=== PATIENT | female | born 1970 | race Caucasian/White ===

== ENCOUNTER → 2016-09-30 | Emergency (ER) | payer OTHER ==
[~2016-09-30] MED LIST: PANTOPRAZOLE SODIUM 40 MG VIAL ONE; PANTOPRAZOLE SODIUM 40 MG in SODIUM CHLORIDE 100 ML IVPB ONE
[2016-09-30 18:41] VITALS: TEMP 97.9; BMI 28.3
--- NOTE | 2016-09-30 20:28 | PDOC ---
History of Present Illness - General History Source: Patient Exam Limitations: No Limitations - History of Present Illness Initial Comments: 09/30/16 20:41 The patient is a 46 year old female with no significant past medical history who presents to the ED for 5 days of chest pain. Patient reports she developed intermittent back pain 6 months ago and 5 days ago she developed chest pain. She describes her chest pain as a burning and pinching sensation that is bandlike across her chest and back. Patient took ibuprofen with minimal relief. She also has complaints of chills, SOB, nausea, and constipation. Denies any paresthesias or urinary/bladder incontinence. The patient denies fever, cough, diaphoresis, abdominal pain, vomiting, and diarrhea. Allergies: NKDA Social History: No alcohol, tobacco, or drug use reported. Past Surgical History: None reported PCP: Dr. Vanita Jimenez <Jacy Wilks - Last Filed: 09/30/16 21:26> - General History Source: Patient <Henry Nuñez - Last Filed: 09/30/16 21:58> - General Chief Complaint: Chest Pain Stated Complaint: CHEST PRESSURE/PAIN/NAUSEA/LIGHTHEADED Time Seen by Provider: 09/30/16 20:28 Past History <Jacy Wilks - Last Filed: 09/30/16 21:26> - Past Medical History Other medical history: denies - Psycho/Social/Smoking Cessation Hx Suicidal Ideation: No Smoking History: Never smoked Information on smoking cessation initiated: No Hx Alcohol Use: No Drug/Substance Use Hx: No Substance Use Type: None <Henry Nuñez - Last Filed: 09/30/16 21:58> - Past Medical History Allergies/Adverse Reactions: Allergies Allergy/AdvReac Type Severity Reaction Status Date / Time No Known Allergies Allergy Verified 09/30/16 18:38 Home Medications: Ambulatory Orders NK [No Known Home Medication] 09/30/16 Review of Systems - Review of Systems Able to Perform ROS?: Yes Comments:: 09/30/16 20:42 CONSTITUTIONAL: +chills Absent: fever, no fatigue EYES: Absent: visual changes ENT: Absent: ear pain, no sore throat CARDIOVASCULAR: +chest pain Absent: no palpitations RESPIRATORY: +SOB Absent: cough GI: +nausea, constipation Absent: abdominal pain, no vomiting, no diarrhea GENITOURINARY: Absent: dysuria, no frequency, no hematuria MUSCULOSKELETAL: +back pain Absent: no arthralgia, no myalgia SKIN: Absent: rash NEURO: Absent: headache <Jacy Wilks - Last Filed: 09/30/16 21:26> *Physical Exam - Vital Signs Last Vital Signs Temp Pulse Resp BP Pulse Ox 97.9 F 66 18 136/79 100 09/30/16 18:36 09/30/16 18:36 09/30/16 18:36 09/30/16 18:36 09/30/16 18:36 - Physical Exam Comments: 09/30/16 20:43 GENERAL: Well-appearing, well-nourished. No apparent distress. HEENT: Normocephalic, atraumatic. PERRL, EOM intact. CARDIOVASCULAR: Normal S1, S2. Regular rate and rhythm. PULMONARY: Clear to auscultation bilaterally. ABDOMEN: Soft, non-distended, non-tender. EXTREMITIES: Normal ROM in all four extremities. No gross deformities. SKIN: Warm, dry. No rash NEUROLOGICAL: No focal neurological deficits. <Jacy Wilks - Last Filed: 09/30/16 21:26> - Vital Signs Last Vital Signs Temp Pulse Resp BP Pulse Ox 97.9 F 66 18 136/79 100 09/30/16 18:36 09/30/16 18:36 09/30/16 18:36 09/30/16 18:36 09/30/16 18:36 <Henry Nuñez - Last Filed: 09/30/16 21:58> Heart Score/ECG Review - ECG Impressions Comment:: 09/30/16 21:26 NSR @73bpm Low voltage QRS Borderline ECG <Jacy Wilks - Last Filed: 09/30/16 21:26> ED Treatment Course - LABORATORY CBC & Chemistry Diagram: 09/30/16 20:40 09/30/16 20:40 <EfeJacy - Last Filed: 09/30/16 21:26> - LABORATORY CBC & Chemistry Diagram: 09/30/16 20:40 09/30/16 20:40 <Henry Nuñez - Last Filed: 09/30/16 21:58> Medical Decision Making - Medical Decision Making 09/30/16 21:56 Dr. Nuñez: The scribe's documentation has been prepared under my direction and personally reviewed by me in its entirery. I confirm that the note above accurately reflects all work, treatment, procedures, and medical decision making performed by me. Pt feels better with treatment with here in the department. Pt to follow up with her pcp and given referral to GI and cardiology <Henry Nuñez - Last Filed: 09/30/16 21:58> *DC/Admit/Observation/Transfer - Attestations Scribe Attestion: 09/30/16 20:43 Documentation prepared by Jacy Wilks, acting as medical microbiologist for Henry Nuñez MD/DO. <Jacy Wilks - Last Filed: 09/30/16 21:26> - Discharge Dispostion Admit: No <Henry Nuñez - Last Filed: 09/30/16 21:58> Diagnosis at time of Disposition: Chest pain Qualifiers: Chest pain type: unspecified Qualified Code(s): R07.9 - Chest pain, unspecified GERD (gastroesophageal reflux disease) Qualifiers: Esophagitis presence: esophagitis presence not specified Qualified Code(s): K21.9 - Gastro-esophageal reflux disease without esophagitis - Discharge Dispostion Disposition: HOME Condition at time of disposition: Improved - Referrals Referrals: Vanita Jimenez MD [Primary Care Provider] - Alfonzo Mitchell MD [Staff Physician] - Halie Addison MD [Staff Physician] - - Patient Instructions Printed Discharge Instructions: DI for Chest Pain, GERD Diet, DI for Gastroesophageal Reflux Disease (GERD) Print Language: ZAMBIAN
[2016-09-30 21:01] LABS: BASOPHIL 1.4 % (0-2.0); EOSINOPHIL 3.1 % (0-4.5); MCH 23.3 pg (25.7-33.7); MCHC 31.1 g/dl (32.0-36.0); MEAN PLT VOLUME 10.6 fl (7.5-11.1); NEUTROPHILS 55.6 % (42.8-82.8); PLATELET COUNT 216 K/MM3 (134-434); RDW 17.1 % (11.6-15.6)
[2016-09-30 21:13] LABS: INR 1.05 (0.82-1.09); PROTHROMBIN TIME (PATIENT) 11.6 SEC (9.98-11.88)
[2016-09-30 21:23] LABS: ALBUMIN 3.6 g/dl (3.4-5.0); ALK PHOS 73 U/L (45-117); ANION GAP 7 (8-16); BILIRUBIN,TOTAL 0.2 mg/dL (0.2-1.0); CALCIUM 8.5 mg/dL (8.5-10.1); CO2 27 mmol/L (21-32); CREATININE 0.6 mg/dL (0.55-1.02); GLUCOSE,RANDOM 95 mg/dL (74-106); MAGNESIUM 2.1 mg/dL (1.8-2.4); SGOT/AST 17 U/L (15-37); SGPT/ALT 23 U/L (12-78); TOT PROT 7.2 g/dl (6.4-8.2)
[2016-09-30 21:34] LABS: TROPONIN I < 0.02 ng/ml (0.00-0.05)
[2016-09-30 22:29] VITALS: BP 124/78; PULSE 78
--- NOTE | 2016-10-01 17:12 | EKG ---
Test Reason : Blood Pressure : / mmHG Vent. Rate : 073 BPM Atrial Rate : 073 BPM P-R Int : 156 ms QRS Dur : 076 ms QT Int : 400 ms P-R-T Axes : 069 026 064 degrees QTc Int : 440 ms NORMAL SINUS RHYTHM LOW VOLTAGE QRS BORDERLINE ECG WHEN COMPARED WITH ECG OF 09-MAY-2010 12:13, NO SIGNIFICANT CHANGE WAS FOUND Confirmed by JAMSHID LITTLE MD ([id number]) on 10/01/2016 5:11:44 PM Referred By: Confirmed By:JAMSHID LITTLE MD
== END | disposition home or self-care (01) ==
LOC: JER 18:26
PROC: 3E033GC Introduction of Other Therapeutic Substance into Peripheral Vein, Percutaneous Approach (ICD-10-PCS; principal; 2016-09-30)
DX: K21.9 Gastro-esophageal reflux disease without esophagitis (principal); R07.89 Other chest pain
CPT/HCPCS: 36415; 71020-TC; 80053; 81003; 82550; 83690; 83735; 84484; 84703; 85025; 85379; 85610; 93005; 93010; 96365; 99285-25

== ENCOUNTER 2016-10-24 07:37 | Inpatient (IN) | payer OTHER ==
[2016-10-24] MEDS ORDERED: SODIUM CHLORIDE 1,000 ML IV STA ×2 (07:55→09:29)
[2016-10-24 08:03] VITALS: BMI 29.2
--- NOTE | 2016-10-24 08:34 | PDOC ---
History of Present Illness - General Chief Complaint: Weakness Stated Complaint: LOW BLOOD PRESSURE Time Seen by Provider: 10/24/16 07:53 History Source: Patient, EMS, Family - History of Present Illness Timing/Duration: other (this am) Severity: severe Associated Symptoms: reports: chest pain, weakness. denies: diaphoresis, fever/ chills, nausea/vomiting, shortness of breath, syncope Past History - Past Medical History Allergies/Adverse Reactions: Allergies Allergy/AdvReac Type Severity Reaction Status Date / Time No Known Allergies Allergy Verified 10/24/16 08:02 Home Medications: Ambulatory Orders Amoxicillin - [Amoxicillin 250mg Capsule -] 0 mg PO BID 10/24/16 Clarithromycin [Biaxin -] 0 mg PO BID 10/24/16 Omeprazole 0 mg PO BID 10/24/16 Thyroid Disease: No - Psycho/Social/Smoking Cessation Hx Anxiety: No Suicidal Ideation: No Smoking History: Never smoked Have you smoked in the past 12 months: No Information on smoking cessation initiated: No Hx Alcohol Use: No Drug/Substance Use Hx: No Substance Use Type: None Review of Systems - Review of Systems Constitutional: Yes: Malaise, Weakness. No: Chills, Fever Respiratory: No: Cough, Shortness of Breath Cardiac (ROS): Yes: Chest Pain. No: Palpitations ABD/GI: No: Blood Streaked Bowels, Diarrhea, Nausea, Vomiting, Abdominal cramping, Tarry Stools Musculoskeletal: Yes: Back Pain *Physical Exam - Vital Signs Last Vital Signs Temp Pulse Resp BP Pulse Ox 97.3 F L 55 L 18 88/48 100 10/24/16 07:40 10/24/16 07:40 10/24/16 07:40 10/24/16 07:40 10/24/16 07:40 - Physical Exam General Appearance: Yes: Appropriately Dressed, Other (appears lethargic and pale w/ weak voice) Neck: positive: Supple Respiratory/Chest: positive: Lungs Clear, Normal Breath Sounds. negative: Respiratory Distress Cardiovascular: positive: Regular Rate, S1, S2 Gastrointestinal/Abdominal: positive: Normal Bowel Sounds, Soft. negative: Tender, Distended, Guarding, Rebound Rectal Exam: positive: other (soft brown stool). negative: melena Musculoskeletal: negative: CVA Tenderness Extremity: positive: Normal Inspection Integumentary: positive: Dry, Warm Neurologic: positive: Fully Oriented ED Treatment Course - LABORATORY CBC & Chemistry Diagram: 10/24/16 08:21 10/24/16 09:00 - RADIOLOGY Radiology Studies Ordered: Category Date Time Status CHEST X-RAY PORTABLE* [RAD] Stat Radiology 10/24/16 07:55 Ordered Medical Decision Making - Medical Decision Making 10/24/16 08:20 46 yo F, h/o GERD, anemia, currently on clarithromycin, amoxicillin and omeprazole after presenting to [facility] 2 days ago with chest and back pain, no recent scope, brought in by EMS after daughter called to report that patient was lethargic and not able to speak this a.m. As per EMS at the scene, patient appeared lethargic and hypotensive to 70s over 40s that minimally improved with 700 mL of IV fluids, HR mildly cristal. currently in ED and states last time he saw patient was last night and patient was complaining of some chest and back pain but appeared well otherwise. Patient currently lethargic in ED and hypotensive but able to give some history. Complains of feeling very weak at this time. Denies any change in bowel movements, melena, bright red blood per rectum, nausea, vomiting, fever, chills or dysuria. No history of GI bleed See exam Lethargy w/ ongoing SS chest/back pain Currently on triple therapy (amoxicillin/clarithro/omeprazole) for Hpylori in stool 4 days ago in PMD's office per pt S/p ED visit to [facility] 2 days ago for chest/back pain and started on nexium but not yet taken H/o "hereditary anemia", no h/o transfusion Denies GIB currently and no h/o same Hypotensive to 80s/50s in ED, otherwise stable +minimal ttp to substernal area, abd benign Soft brown stool, guaiac pending Lethargy 2/2 ?GIB/worsening anemia vs infxn/sepsis, though not febrile, vs cardiac -IVF -EKG/trops -Labs including T&S in case of GIB/need for transfusion -contact [facility] for records -PMD and admit 10/24/16 08:41 10/24/16 08:[address] [facility] and spoke to the physician in ED who reported that patient was seen in ED 2 days ago for burning chest and back pain and had unremarkable labs, including negative troponin, dimer and a hemoglobin of 9.6. Patient was discharged from the ED with Nexium. 2 30,86 trop dimer neg oags nl, bnexium 10/24/16 08:34 10/24/16 09:29 Labs w/ worsening anemia to 8.2, was 9.6, 2 days ago as documented above and 10 , 09/30/16 at [facility], rest pr labs unremarkable. BP better at 114/59 and pt reports feeling better. Will contact pmd and admit at this time 10/24/16 10:[address] Benton Celeste, patient's PMD, who recommends admitting to hospitalist. Dr. Perez currently at bedside and requesting CT abdomen. Patient currently admitted to hospitalist *DC/Admit/Observation/Transfer Diagnosis at time of Disposition: Lethargy, H. pylori infection Hypotension Qualifiers: Hypotension type: unspecified hypotension type Qualified Code(s): I95.9 - Hypotension, unspecified - Discharge Dispostion Condition at time of disposition: Fair Admit: Yes - Referrals Referrals: Vanita Jimenez MD [Primary Care Provider] -
[2016-10-24 08:36] LABS: EOSINOPHIL 1.9 % (0-4.5); MCH 23.9 pg (25.7-33.7); MCHC 31.5 g/dl (32.0-36.0); MEAN CELL VOLUME 75.9 fl (80-96); MEAN PLT VOLUME 10.1 fl (7.5-11.1); NEUTROPHILS 62.4 % (42.8-82.8); PLATELET COUNT 156 K/MM3 (134-434); RDW 17.8 % (11.6-15.6); WHITE BLOOD COUNT 7.5 K/mm3 (4.0-10.0)
[2016-10-24 08:37] LABS: URINE APPEARANCE CLEAR; URINE BILIRUBIN NEGATIVE (NEGATIVE); URINE COLOR STRAW; URINE GLUCOSE (UA) NEGATIVE (NEGATIVE); URINE KETONE NEGATIVE (NEGATIVE); URINE LEUK ESTERASE NEGATIVE (NEGATIVE); URINE NITRITE NEGATIVE (NEGATIVE); URINE PROTEIN NEGATIVE (NEGATIVE); URINE UROBILINOGEN NEGATIVE E.U./dl (0.2-1.0)
[2016-10-24 08:38] LABS: URINE BLOOD 1+ (NEGATIVE)
[2016-10-24 08:43] LABS: GRANULAR CASTS 3 /lpf; URINE MUCUS RARE; URINE RBC 2 /hpf (0-3); URINE WBC <1 /hpf (3-5)
[2016-10-24 08:50] LABS: INR 1.11 (0.82-1.09); PROTHROMBIN TIME (PATIENT) 12.2 SEC (9.98-11.88)
[2016-10-24 09:05] LABS: TROPONIN I < 0.02 ng/ml (0.00-0.05)
[2016-10-24 09:18] LABS: ALK PHOS 56 U/L (45-117); ANION GAP 8 (8-16); BILIRUBIN,TOTAL 0.3 mg/dL (0.2-1.0); CALCIUM 7.7 mg/dL (8.5-10.1); CO2 24 mmol/L (21-32); COCKROFT - GAULT 157.7005; CREATININE 0.5 mg/dL (0.55-1.02); GLUCOSE,RANDOM 87 mg/dL (74-106); SGOT/AST 17 U/L (15-37); SGPT/ALT 17 U/L (12-78); TOT PROT 6.1 g/dl (6.4-8.2)
--- NOTE | 2016-10-24 09:26 | PDOC ---
*Physical Exam - Vital Signs Last Vital Signs Temp Pulse Resp BP Pulse Ox 97.3 F L 64 14 109/65 100 10/24/16 07:50 10/24/16 08:54 10/24/16 08:54 10/24/16 08:54 10/24/16 08:54 Heart Score/ECG Review #1 ECG reviewed & interpreted by me at: 09:25 10/24/16 09:25 Twelve-lead EKG was performed and reviewed by me. There is normal sinus rhythm with a slightly bradycardiac rate of 59 bpm. The axis is normal. The intervals are normal - pr: 164ms, QRS:76ms, QTc:467ms. There are no ST or T wave abnormalities. ED Treatment Course - LABORATORY CBC & Chemistry Diagram: 10/25/16 06:45 10/25/16 06:45 - ADDITIONAL ORDERS Additional order review: Laboratory Results 10/24/16 10/24/16 10/24/16 09:00 08:55 08:23 INR Sodium 143 Potassium 3.7 Chloride 111 H Carbon Dioxide 24 Anion Gap 8 BUN 10 D Creatinine 0.5 L Creat Clearance w eGFR > 60 Random Glucose 87 Calcium 7.7 L Total Bilirubin 0.3 D AST 17 ALT 17 D Alkaline Phosphatase 56 D Creatine Kinase Troponin I Total Protein 6.1 L Albumin 3.0 L Lipase Cancelled Serum , Qual Urine Color Urine Appearance Urine pH Urine Protein Urine Glucose (UA) Urine Ketones Urine Blood Urine Nitrite Urine Bilirubin Urine Urobilinogen Ur Leukocyte Esterase Urine RBC Urine WBC Ur Epithelial Cells Granular Casts Urine Mucus Stool Occult Blood Negative 10/24/16 10/24/16 10/24/16 08:21 08:21 08:21 INR 1.11 Sodium Potassium Chloride Carbon Dioxide Anion Gap BUN Creatinine Creat Clearance w eGFR Random Glucose Calcium Total Bilirubin AST ALT Alkaline Phosphatase Creatine Kinase Troponin I Total Protein Albumin Lipase Cancelled Serum , Qual Urine Color Straw Urine Appearance Clear Urine pH 7.0 Urine Protein Negative Urine Glucose (UA) Negative Urine Ketones Negative Urine Blood 1+ H Urine Nitrite Negative Urine Bilirubin Negative Urine Urobilinogen Negative Ur Leukocyte Esterase Negative Urine RBC 2 Urine WBC <1 Ur Epithelial Cells Rare Granular Casts 3 Urine Mucus Rare Stool Occult Blood 10/24/16 10/24/16 08:21 07:56 INR Sodium Potassium Chloride Carbon Dioxide Anion Gap BUN Creatinine Creat Clearance w eGFR Random Glucose Calcium Total Bilirubin AST ALT Alkaline Phosphatase Creatine Kinase 123 Troponin I < 0.02 Total Protein Albumin Lipase 152 Serum , Qual Negative Urine Color Urine Appearance Urine pH Urine Protein Urine Glucose (UA) Urine Ketones Urine Blood Urine Nitrite Urine Bilirubin Urine Urobilinogen Ur Leukocyte Esterase Urine RBC Urine WBC Ur Epithelial Cells Granular Casts Urine Mucus Stool Occult Blood 10/24/16 08:21 RBC 3.45 L MCV 75.9 L MCHC 31.5 L RDW 17.8 H MPV 10.1 Neutrophils % 62.4 Lymphocytes % 29.1 Monocytes % 5.6 Eosinophils % 1.9 Basophils % 1.0 - Medications Given in the ED: ED Medications Discontinued Medications Generic Name Dose Route Start Last Admin Trade Name Freq PRN Reason Stop Dose Admin Sodium Chloride 1,000 mls @ 1,000 mls/hr 10/24/16 07:55 10/24/16 08:00 Normal Saline - IV 10/24/16 08:54 1,000 mls/hr ASDIR STA Administration Medical Decision Making - Medical Decision Making 10/24/16 09:26 Pt seen by Midlevel Provider under my direct supervision Ancillary studies reviewed I agree with plan as outlined by Midlevel Provider *DC/Admit/Observation/Transfer Diagnosis at time of Disposition: Lethargy, Hypotension, H. pylori infection - Discharge Dispostion Condition at time of disposition: Fair
[2016-10-24] MEDS ORDERED: METOCLOPRAMIDE HCL INJECTION 10 MG/2 ML VIAL IVPB ONE (10:26)
[2016-10-24] MEDS ORDERED: METOCLOPRAMIDE HCL INJECTION 10 MG/2 ML VIAL ONE (10:47)
[2016-10-24] MEDS ORDERED: ACETAMINOPHEN 325 MG TABLET (FP) PO PRN (11:33)
[2016-10-24] MEDS ORDERED: PANTOPRAZOLE SODIUM 40 MG in SODIUM CHLORIDE 100 ML IVPB SCH (11:45)
[2016-10-24] MEDS ORDERED: SODIUM CHLORIDE 1,000 ML IV SCH (11:45)
--- NOTE | 2016-10-24 12:01 | HP ---
CHIEF COMPLAINT: I feel weak and dizzy PCP: Benton Alonzo MD HISTORY OF PRESENT ILLNESS: 46 yo F with newly diagnosed GERD and h. pylori on triple therapy started 2 days ago presented to the ED with general weakness and dizziness since 3am. The symptom came on when she got up from bed this morning. She felt "drunk" and unsteady with blurry vision but denies fall or passing out. Her family member called ambulance at 6am because the symptom still persists. Per at bedside, she did not eat dinner last night due to epigastric discomfort. She describes the discomfort as epigastric burning pain, chronic and only comes on when sleeping or after meal, radiates to the back, 5-8/10 in severity, no alleviating or aggravating factors. Patient was seen in ED at [facility] 2 days ago for chest pain. Cardiac workup was negative and stool was positive for h. pylori therefore she's discharged home on triple therapy ( amoxicillin, clarithromycin and omeprazole). However, she did not take omeprazole since discharge. Patient also never had endoscopy or colonoscopy in the past and her LMP was 2 days ago with 2 pads on average. She denies nausea, vomiting, shortness of breath, fever, heavy menses, hematochezia, melena, hematuria, or syncope. ER course was notable for: (1) Hypotensive 70s over 40s (2) Received 2 L of NS (3) CBC shows microcytic anemia Recent Travel: Denies PAST MEDICAL HISTORY: Suspected chronic microcytic anemia PAST SURGICAL HISTORY: Social History: Smoking: Denies Alcohol: Denies Drugs: Denies Family History: Mother of diabetic complication Father alive Allergies No Known Allergies Allergy (Verified 10/24/16 08:02) HOME MEDICATIONS: Home Medications Medication Instructions Recorded Amoxicillin - [Amoxicillin 250mg 0 mg PO BID 10/24/16 Capsule -] Clarithromycin [Biaxin -] 0 mg PO BID 10/24/16 Omeprazole 0 mg PO BID 10/24/16 REVIEW OF SYSTEMS CONSTITUTIONAL: chills Absent: fever, diaphoresis, generalized weakness, malaise, loss of appetite, weight change HEENT: Absent: rhinorrhea, nasal congestion, throat pain, throat swelling, difficulty swallowing, mouth swelling, ear pain, eye pain, visual changes CARDIOVASCULAR: Absent: chest pain, syncope, palpitations, irregular heart rate, lightheadedness , peripheral edema RESPIRATORY: Absent: cough, shortness of breath, dyspnea with exertion, orthopnea, wheezing, stridor, hemoptysis GASTROINTESTINAL:abdominal pain Absent: abdominal distension, nausea, vomiting, diarrhea, constipation, melena, hematochezia GENITOURINARY: Absent: dysuria, frequency, urgency, hesitancy, hematuria, flank pain, genital pain MUSCULOSKELETAL: Absent: myalgia, arthralgia, joint swelling, back pain, neck pain SKIN: Absent: rash, itching, pallor HEMATOLOGIC/IMMUNOLOGIC: Absent: easy bleeding, easy bruising, lymphadenopathy, frequent infections ENDOCRINE: Absent: unexplained weight gain, unexplained weight loss, heat intolerance, cold intolerance NEUROLOGIC: Absent: headache, focal weakness or paresthesias, dizziness, unsteady gait, seizure, mental status changes, bladder or bowel incontinence PSYCHIATRIC: anxiety Absent: depression, suicidal or homicidal ideation, hallucinations. PHYSICAL EXAMINATION Last Vital Signs Temp Pulse Resp BP Pulse Ox 98 F 65 16 112/65 100 10/24/16 11:27 10/24/16 11:36 10/24/16 11:36 10/24/16 11:36 10/24/16 11:36 GENERAL: AAO x 3, appears appropriate to stated age, looks weak, speaks slowly in full sentences, but not in any acute distress HEAD: NC, AT EYES: PERRLA, sclera anicteric, conjunctiva clear. EARS, NOSE, THROAT: oropharynx clear without exudates. Moist mucous membranes. NECK: supple without lymphadenopathy, JVD, or masses. LUNGS: CTAB HEART: RRR, normal S1 and S2 without murmur, rub or gallop. ABDOMEN: Soft, nontender, not distended, normoactive bowel sounds, no guarding, no rebound, no masses. EXTREMITIES: No calf tenderness. No peripheral edema. CBCD WBC 7.5 K/mm3 (4.0-10.0) 10/24/16 08:21 RBC 3.45 M/mm3 (3.60-5.2) L 10/24/16 08:21 Hgb 8.2 GM/dL (10.7-15.3) L D 10/24/16 08:21 Hct 26.1 % (32.4-45.2) L D 10/24/16 08:21 MCV 75.9 fl (80-96) L 10/24/16 08:21 MCHC 31.5 g/dl (32.0-36.0) L 10/24/16 08:21 RDW 17.8 % (11.6-15.6) H 10/24/16 08:21 Plt Count 156 K/MM3 (134-434) D 10/24/16 08:21 MPV 10.1 fl (7.5-11.1) 10/24/16 08:21 CMP Sodium 143 mmol/L (136-145) 10/24/16 09:00 Potassium 3.7 mmol/L (3.5-5.1) 10/24/16 09:00 Chloride 111 mmol/L (98-107) H 10/24/16 09:00 Carbon Dioxide 24 mmol/L (21-32) 10/24/16 09:00 Anion Gap 8 (8-16) 10/24/16 09:00 BUN 10 mg/dL (7-18) D 10/24/16 09:00 Creatinine 0.5 mg/dL (0.55-1.02) L 10/24/16 09:00 Creat Clearance w eGFR > 60 (>60) 10/24/16 09:00 Calcium 7.7 mg/dL (8.5-10.1) L 10/24/16 09:00 Total Bilirubin 0.3 mg/dL (0.2-1.0) D 10/24/16 09:00 AST 17 U/L (15-37) 10/24/16 09:00 ALT 17 U/L (12-78) D 10/24/16 09:00 Alkaline Phosphatase 56 U/L (45-117) D 10/24/16 09:00 Total Protein 6.1 g/dl (6.4-8.2) L 10/24/16 09:00 Albumin 3.0 g/dl (3.4-5.0) L 10/24/16 09:00 Urine Test Results Urine Color Straw 10/24/16 08:21 Urine Appearance Clear 10/24/16 08:21 Urine pH 7.0 (5.0-8.0) 10/24/16 08:21 Urine Protein Negative (NEGATIVE) 10/24/16 08:21 Urine Glucose (UA) Negative (NEGATIVE) 10/24/16 08:21 Urine Ketones Negative (NEGATIVE) 10/24/16 08:21 Urine Blood 1+ (NEGATIVE) H 10/24/16 08:21 Urine Nitrite Negative (NEGATIVE) 10/24/16 08:21 Urine Bilirubin Negative (NEGATIVE) 10/24/16 08:21 Ur Leukocyte Esterase Negative (NEGATIVE) 10/24/16 08:21 Urine RBC 2 /hpf (0-3) 10/24/16 08:21 Urine WBC <1 /hpf (3-5) 10/24/16 08:21 Ur Epithelial Cells Rare /hpf (FEW) 10/24/16 08:21 Urine Mucus Rare 10/24/16 08:21 IMAGING CXR on 10/24: No acute pathology CT abd w/ contrast on 10/24: no acute GI pathology. Uterine fibroid. ASSESSMENT/PLAN: 46 yo F with newly diagnosed GERD and h. pylori on triple therapy admitted to the hospital for hypotension r/o acute GIB. Hypotension, r/o UGIB - responded well to fluids * received 2 L IVF in ED * IVF TUNG at 125cc/hr - h/o GERD and h. pylori - microcytic anemia * f/u iron study - orthostatic BP negative - stool OB negative for acute LGIB - CT abd negative for acute UGIB - GI consult FEN - cont. IVF 125cc/hr - normal lytes - regular diet Prophylaxis - DVT: SCDs - GI: on PPI Dispo - Admitted to med-surg Visit type - Emergency Visit Emergency Visit: Yes ED Registration Date: 10/24/16 Care time: The patient presented to the Emergency Department on the above date and was hospitalized for further evaluation of their emergent condition. - New Patient This patient is new to me today: Yes Date on this admission: 10/24/16 - Critical Care Critical Care patient: No
--- NOTE | 2016-10-24 13:00 | PN ---
Teaching Attending Note Name of Resident: Sandro Carpio ATTENDING PHYSICIAN STATEMENT I saw and evaluated the patient. I reviewed the resident's note and discussed the case with the resident. I agree with the resident's findings and plan as documented. SUBJECTIVE: This is a 46 year old woman with no significant history who comes to the ER complaining of dizziness and abdominal pain. She had been seen in the ER on 09/30 for burning chest pain. She was seen in the ER at [facility] 3 days ago. She was found to have stool positive for H. pylori and was started on Amoxicillin, Biaxin and Omeprazole by her PCP. This morning she awoke at 3am feeling weak and dizzy. She was unsteady and vision was blurry. At 6am, she was still having symptoms, so family called EMS. EMS found her to be lethargic with BP 70s/40s. She was treated with IV fluid and brought to the ER. OBJECTIVE: Vital Signs Period Temp Pulse Resp BP Sys/Oneal Pulse Ox Last 24 Hr 97.3 F-98 F 55-65 14-18 85-112/47-67 99-100 GENERAL: Lethargic, arousable, able to answer questions HEART: S1S2, RRR LUNGS: Clear ABDOMEN: Soft, non-tender, non-distended, normal BS EXTREMITIES: No edema ASSESSMENT AND PLAN: This is a 46 year old woman with no significant history who presented to the ER complaining of dizziness and abdominal pain. 1. Hypotension - Patient given NS 2L IV with improvement in BP from 88/48 to 100s/40s - Etiology unclear - No evidence of GI bleeding - stool negative for occult blood - Continue IV fluid to maintain BP 2. Anemia, microcytic - Probable iron deficiency - Check iron studies - Monitor Hgb 3. GERD with H. pylori - Continue Amoxicillin, Biaxin, Protonix
[2016-10-24] MEDS: CLARITHROMYCIN 500 MG TABLET (UD) PO SCH ×2 (14:50→21:14)
[2016-10-24] MEDS: AMOXICILLIN 250 MG CAPSULE PO SCH ×2 (14:50→21:14)
[2016-10-24] MEDS: PANTOPRAZOLE 20 MG TABLET (FP) PO SCH ×2 (14:50→21:14)
[2016-10-24] MEDS ORDERED: PT OWN MED DRAWER 7, Y5N ONE ×2 (15:55→21:10)
[2016-10-24] MEDS ORDERED: ONDANSETRON *ODT* 4 MG TABLET SL PRN (16:57)
--- NOTE | 2016-10-24 18:50 | CON.GI ---
Consult Consult Specialty:: GI Referred by:: Hospitalist Reason for Consultation:: H. pylori - History of Present Illness Chief Complaint: "I am dizzy, my mouth is weak and I have numbness of my lips" History of Present Illness: 46F admitted to [facility] through the ER. She complains to me that the reason she is admitted is for dizziness and mouth numbness. She explains that she was seen at the [facility] ER this past friday for back pain (bilateral upper back), was told of muscle spasms and told to use warm compresses. the week prior to all this she was seen by her PMD, tested for h. pylori via stool antigen and given triple therapy for h. pylori. She started the h. pylori treatment this past friday and continued it after her [facility] evaluation. She also tells me that she feels as though her head is spinning, that she has experienced numbness along the right side of her body three weeks ago and had a right sided headache yesterday. She denies abdominal pain, nausea, vomiting, changes in bowel habits , rectal bleeding or melena. She has never had an upper endoscopy or colonoscopy. She was noted to be anemic and Ms. Hamlin explains that she has known of anemia for many years. She has normal menstrual periods however they can be heavy at times. CT scan of the abd/pelvis revealed a fibroid uterus - History Source History Provided By: Patient, Family Member (Daughtern and sister were present) Limitations to Obtaining History: No Limitations - Past Medical History [employer]: Yes: Migraine, Vertigo Gastrointestinal: Yes: Gastritis ...LMP: 10/22/16 Heme/Onc: Yes: Anemia - Past Surgical History Past Surgical History: Yes: Additional Surgical History: Bladder Lift - Alcohol/Substance Use Hx Alcohol Use: No History of Substance Use: reports: None - Smoking History Smoking history: Never smoked Have you smoked in the past 12 months: No - Social History Usual Living Arrangement: With Spouse ADL: Independent Occupation: Unemployed Place of : Other ([place]) History of Recent Travel: No Home Medications - Allergies Allergies/Adverse Reactions: Allergies Allergy/AdvReac Type Severity Reaction Status Date / Time No Known Allergies Allergy Verified 10/24/16 08:02 - Home Medications Home Medications: Ambulatory Orders Amoxicillin - [Amoxicillin 250mg Capsule -] 1,000 mg PO BID 10/24/16 Clarithromycin [Biaxin -] 500 mg PO BID 10/24/16 Omeprazole 20 mg PO BID 10/24/16 Family Disease History - Family Disease History Family Disease History: Other: Father (did not know her father), Mother (: 53: diabetic complications), Brother (2 bros, 1 with DM), Sister (1 sis, healthy ) Other Family History: Three healthy children. No family history of colorectal cancer or other GI malignancy Review of Systems - Review of Systems Constitutional: reports: Chills, Lethargy, Weakness. denies: Fever, Unintentional Wgt. Loss Cardiovascular: denies: Chest Pain Respiratory: denies: Cough, SOB Gastrointestinal: denies: Abdominal Pain, Constipation, Diarrhea, Melena, Rectal Bleeding Neurological: reports: Dizziness, Headache, Numbness, Parasthesia, Weakness Physical Exam-GI Vital Signs: Vital Signs Temperature 99.0 F 10/24/16 17:52 Pulse Rate 76 10/24/16 17:40 Respiratory Rate 18 10/24/16 17:40 Blood Pressure 106/56 10/24/16 17:40 O2 Sat by Pulse Oximetry (%) 100 10/24/16 13:00 Constitutional: Yes: Calm Eyes: Yes: PERRL. No: Sclera Icterus Neck: Yes: Supple Cardiovascular: Yes: Regular Rate and Rhythm, Murmur (+2/6 LINDA at RSB) Respiratory: Yes: CTA Bilaterally Gastrointestinal Inspection: No: Distention ...Auscultate: Yes: Normoactive Bowel Sounds ...Palpate: No: Hepatomegaly, Splenomegaly, Tenderness ...Percussion: No: Tympanitic ...Rectal Exam: Yes: Guaiac Negative (light brown stool) Edema: No Neurological: Yes: Alert Labs: INR, PTT INR 1.11 (0.82-1.09) 10/24/16 08:21 CBC, BMP 10/24/16 08:21 10/24/16 09:00 Hepatic Panel Total Bilirubin 0.3 mg/dL (0.2-1.0) D 10/24/16 09:00 AST 17 U/L (15-37) 10/24/16 09:00 ALT 17 U/L (12-78) D 10/24/16 09:00 Alkaline Phosphatase 56 U/L (45-117) D 10/24/16 09:00 Albumin 3.0 g/dl (3.4-5.0) L 10/24/16 09:00 Assessment/Plan No acute GI issues at this time but she has multiple neurological complaints. I ? if she had reaction to her H. pylori therapy, which she last took yesterday , or if alternate neurologic process occurring. Consider neuro lory Discussed Ms. Hamlin' current complaints with Resident Balaji Anemia: Check iron studies Check celiac serologies Heme lory I explained to her and her family that when her acute issues are resolved, she could follow-up in office to discuss endoscopic evaluations
[2016-10-24] MEDS: SODIUM CHLORIDE 1,000 ML IV SCH (21:14)
--- NOTE | 2016-10-24 22:42 | HOSP ---
<Rosy Scott - Last Filed: 10/24/16 22:32> Physical Examination Vital Signs: Vital Signs Temperature 99.0 F 10/24/16 17:52 Pulse Rate 76 10/24/16 17:40 Respiratory Rate 18 10/24/16 17:40 Blood Pressure 106/56 10/24/16 17:40 O2 Sat by Pulse Oximetry (%) 100 10/24/16 13:00 <Alyssa Patricia - Last Filed: 10/24/16 23:12> Subjective - Review of Symptoms Events since last encounter: Patient admitted with complaint of weakness, dizziness and chest pain radiating toward her back which started today. Seen at bedside and very lethargic with minimal verbal response. As per family, pt has become weaker within the last hour of hospitalization and despite 2 L of NS pts BP has had minimal increase. Chart reviewed and there was concern for pt possible having aortic dissection and initially pt had refused MRI and so CT with contrast was requested despite pt already having prior CT with contrast earlier. Risk and benefits considered and discussed with family and patient and agreed on. Case discussed with radiologist in-house and risk and benefits of repeat exposure to contrast including kidney damage discussed and options of less toxic contrast or MRI proposed. The option of doing an MRI for evaluation the patient again discussed with the family and patient who agreed in light of the risk of contrast with CT. Patient, however, became very anxious and refused to do the study and was returned to the floor with complaint of chest pain. Will get a troponins and ECG and give tylenol. Vitals are currently stable and will reevaluate patient once labs and ECG are done. Repeat ECG shows normal voltage and NSR unlike prior ECG with low voltage. Suspicion for tampinod or dissection minimized and will do CT scan or MRI in AM. continue to monitor patient closely overnight. Documentation is prepared by Alyssa Patricia acting as medical planner for Rosy Scott M.D. Physical Examination Vital Signs: Vital Signs Temperature 99.0 F 10/24/16 17:52 Pulse Rate 76 10/24/16 17:40 Respiratory Rate 18 10/24/16 17:40 Blood Pressure 106/56 10/24/16 17:40 O2 Sat by Pulse Oximetry (%) 100 10/24/16 13:00
[2016-10-24 23:40] LABS: TROPONIN I < 0.02 ng/ml (0.00-0.05)
[2016-10-25 07:33] LABS: EOSINOPHIL 1.7 % (0-4.5); MCH 23.9 pg (25.7-33.7); MCHC 31.6 g/dl (32.0-36.0); MEAN CELL VOLUME 75.5 fl (80-96); MEAN PLT VOLUME 9.9 fl (7.5-11.1); NEUTROPHILS 60.7 % (42.8-82.8); PLATELET COUNT 164 K/MM3 (134-434); RDW 17.4 % (11.6-15.6); WHITE BLOOD COUNT 5.8 K/mm3 (4.0-10.0)
[2016-10-25 07:44] LABS: INR 1.12 (0.82-1.09); PROTHROMBIN TIME (PATIENT) 12.4 SEC (9.98-11.88)
[2016-10-25 07:47] LABS: ACTIVATED PTT 28.9 SECONDS (26.9-34.4)
[2016-10-25 08:00] LABS: ALBUMIN 2.6 g/dl (3.4-5.0); ANION GAP 8 (8-16); CALCIUM 7.2 mg/dL (8.5-10.1); CO2 23 mmol/L (21-32); GLUCOSE,RANDOM 99 mg/dL (74-106); MAGNESIUM 2.1 mg/dL (1.8-2.4); SGOT/AST 13 U/L (15-37)
[2016-10-25 08:02] LABS: ALK PHOS 51 U/L (45-117); BILIRUBIN,TOTAL 0.3 mg/dL (0.2-1.0); COCKROFT - GAULT 197.1235; CREATININE 0.4 mg/dL (0.55-1.02); SGPT/ALT 15 U/L (12-78); TOT PROT 5.3 g/dl (6.4-8.2)
[2016-10-25] MEDS: SODIUM CHLORIDE 1,000 ML IV SCH ×2 (09:59→23:02)
[2016-10-25] MEDS: PANTOPRAZOLE 20 MG TABLET (FP) PO SCH ×2 (09:59→23:01)
[2016-10-25] MEDS: AMOXICILLIN 250 MG CAPSULE PO SCH ×2 (09:59→23:01)
[2016-10-25] MEDS: CLARITHROMYCIN 500 MG TABLET (UD) PO SCH ×2 (09:59→23:01)
--- NOTE | 2016-10-25 12:41 | PN ---
Teaching Attending Note Name of Resident: Sandro Carpio ATTENDING PHYSICIAN STATEMENT I saw and evaluated the patient. I reviewed the resident's note and discussed the case with the resident. I agree with the resident's findings and plan as documented. SUBJECTIVE: Patient reports an episode of chest pain last night. EKG is unchanged, troponins are negative. Chest CTA was ordered to evaluate for dissection, but could not be done since patient had CT abd/pelvis earlier in the day. Patient currently reports chest pain and palpitations. OBJECTIVE: Vital Signs Period Temp Pulse Resp BP Sys/Oneal Pulse Ox Last 24 Hr 97.9 F-99.2 F 63-81 12-18 100-133/46-74 97-100 ASSESSMENT AND PLAN: This is a 46 year old woman with no significant history who presented to the ER complaining of dizziness and abdominal pain. 1. Hypotension - Improved - Patient given NS 2L IV with improvement in BP from 88/48 to 100s/40s, BP 137/74 today. - No evidence of GI bleeding - stool negative for occult blood - Continue IV fluid to maintain BP 2. Chest pain - Doubt cardiac, ? GERD - Transfer to telemetry - Echocardiogram - CTA of chest today - Continue Protonix - Cardiology consult 3. Anemia, microcytic - Probable iron deficiency - Iron studies pending - Hemoglobin decreased to 7.9 - continue to monitor 4. GERD with H. pylori - Continue Amoxicillin, Biaxin, Protonix
[2016-10-25] MEDS: FERROUS SO4 300 MG/5 ML ORAL SOLN UNIT DOSE CUPS PO SCH ×2 (12:51→23:01)
[2016-10-25] MEDS ORDERED: POTASSIUM PHOSPHATE 20 MM in SODIUM CHLORIDE 250 ML IVPB ONE (13:00)
--- NOTE | 2016-10-25 13:43 | PN ---
Physical Exam: SUBJECTIVE: Patient c/o chest pain radiates to the back last night but cardiac workup was negative in that trop and EKG cont. to be negative. During medical round, she again c/o palpitation and chest pain. Repeat troponin and EKG are again negative. CTA and MRI scheduled today to r/o dissection and neurologic etiology. OBJECTIVE: Vital Signs Period Temp Pulse Resp BP Sys/Oneal Pulse Ox Last 24 Hr 97.9 F-99.2 F 63-81 12-18 100-133/46-74 97-100 GENERAL: AAO x 3, appears appropriate to stated age, looks less weak, still speaks slowly in full sentences, but not in any acute distress HEAD: NC, AT EYES: PERRLA, sclera anicteric, conjunctiva clear. EARS, NOSE, THROAT: oropharynx clear without exudates. Moist mucous membranes. NECK: supple without lymphadenopathy, JVD, or masses. LUNGS: CTAB HEART: RRR, normal S1 and S2 without murmur, rub or gallop. ABDOMEN: Soft, nontender, not distended, normoactive bowel sounds, no guarding, no rebound, no masses. EXTREMITIES: No calf tenderness. No peripheral edema. CBCD WBC 5.8 K/mm3 (4.0-10.0) 10/25/16 06:45 RBC 3.30 M/mm3 (3.60-5.2) L 10/25/16 06:45 Hgb 7.9 GM/dL (10.7-15.3) L 10/25/16 06:45 Hct 24.9 % (32.4-45.2) L 10/25/16 06:45 MCV 75.5 fl (80-96) L 10/25/16 06:45 MCHC 31.6 g/dl (32.0-36.0) L 10/25/16 06:45 RDW 17.4 % (11.6-15.6) H 10/25/16 06:45 Plt Count 164 K/MM3 (134-434) 10/25/16 06:45 MPV 9.9 fl (7.5-11.1) 10/25/16 06:45 CMP Sodium 143 mmol/L (136-145) 10/25/16 06:45 Potassium 3.6 mmol/L (3.5-5.1) 10/25/16 06:45 Chloride 112 mmol/L (98-107) H 10/25/16 06:45 Carbon Dioxide 23 mmol/L (21-32) 10/25/16 06:45 Anion Gap 8 (8-16) 10/25/16 06:45 BUN 10 mg/dL (7-18) 10/25/16 06:45 Creatinine 0.4 mg/dL (0.55-1.02) L 10/25/16 06:45 Creat Clearance w eGFR > 60 (>60) 10/25/16 06:45 Calcium 7.2 mg/dL (8.5-10.1) L 10/25/16 06:45 Total Bilirubin 0.3 mg/dL (0.2-1.0) 10/25/16 06:45 AST 13 U/L (15-37) L D 10/25/16 06:45 ALT 15 U/L (12-78) 10/25/16 06:45 Alkaline Phosphatase 51 U/L (45-117) 10/25/16 06:45 Total Protein 5.3 g/dl (6.4-8.2) L 10/25/16 06:45 Albumin 2.6 g/dl (3.4-5.0) L 10/25/16 06:45 Urine Test Results Urine Color Straw 10/24/16 08:21 Urine Appearance Clear 10/24/16 08:21 Urine pH 7.0 (5.0-8.0) 10/24/16 08:21 Ur Specific [place] 1.015 (1.005-1.025) 10/24/16 08:21 Urine Protein Negative (NEGATIVE) 10/24/16 08:21 Urine Glucose (UA) Negative (NEGATIVE) 10/24/16 08:21 Urine Ketones Negative (NEGATIVE) 10/24/16 08:21 Urine Blood 1+ (NEGATIVE) H 10/24/16 08:21 Urine Nitrite Negative (NEGATIVE) 10/24/16 08:21 Urine Bilirubin Negative (NEGATIVE) 10/24/16 08:21 Ur Leukocyte Esterase Negative (NEGATIVE) 10/24/16 08:21 Urine RBC 2 /hpf (0-3) 10/24/16 08:21 Urine WBC <1 /hpf (3-5) 10/24/16 08:21 Ur Epithelial Cells Rare /hpf (FEW) 10/24/16 08:21 Urine Mucus Rare 10/24/16 08:21 Active Medications Generic Name Dose Route Start Last Admin Trade Name Judah PRN Reason Stop Dose Admin Acetaminophen 650 mg 10/24/16 11:33 10/25/16 00:07 Tylenol - PO 650 mg Q4H PRN Administration FEVER OR PAIN Amoxicillin 250 mg 10/24/16 11:45 10/25/16 09:59 Amoxicillin - PO 250 mg BID TUNG Administration Clarithromycin 500 mg 10/24/16 12:30 10/25/16 09:59 Biaxin - PO 500 mg BID TUNG Administration Ferrous Sulfate 300 mg 10/25/16 12:00 10/25/16 12:51 Feosol PO 300 mg BID TUNG Administration Sodium Chloride 1,000 mls @ 150 mls/hr 10/24/16 20:45 10/25/16 09:59 Normal Saline - IV 150 mls/hr ASDIR TUNG Administration Potassium Phosphate 20 mm/ 256.6667 mls @ 62.5 mls/hr 10/25/16 13:00 Sodium Chloride IVPB 10/25/16 17:06 ONCE ONE Ondansetron HCl 8 mg 10/24/16 16:57 Zofran Odt - SL Q6H PRN NAUSEA AND/OR VOMITING Pantoprazole Sodium 20 mg 10/24/16 13:00 10/25/16 09:59 Protonix - PO 20 mg BID TUNG Administration IMAGING CXR on 10/24: No acute pathology CT abd w/ contrast on 10/24: no acute GI pathology. Uterine fibroid. CTA chest on 10/25: no PE, no dissection ASSESSMENT/PLAN: 46 yo F with newly diagnosed GERD and h. pylori on triple therapy admitted to the hospital for hypotension r/o acute GIB. Chest pain, atypical - Cardiac workup has been negative so far - Likely GERD Hypotension - Resolved - Dehydration vs. acute GIB - Clinically benign looking and workup negative - Orthostatic BP, stool OB, CT abd negative - BP normal now - h/o GERD and h. pylori - GI signed off, EGD as outpatient to r/o chronic GIB Microcytic anemia - Fe deficiency - Start Feosol 300mg BID - Malabsorption workup as outpatient Facial weakness - Chronic but new complaint upon admission - Normal neuro exam - MRI brain Gastritis - 2/2 H. pylori infection - Cont. current triple therapy FEN - Cont. IVF 150cc/hr - Normal lytes - Regular diet Prophylaxis - DVT: SCDs - GI: on PPI Dispo - Patient's chief complaints have changed several times - Unclear etiology of her changing complaints - Transfer to tele for cardiac monitoring Visit type - Emergency Visit Emergency Visit: No - New Patient This patient is new to me today: No - Critical Care Critical Care patient: No
--- NOTE | 2016-10-25 20:07 | CON.CARD ---
Cardiology Consult (text) - Consultation Consultation Note: CC: cp 46 yo with h/o anemia and recent diagnosis of h. pylori as well as recent episodes of chest pain presents to ER with dizziness/hypotension and found to have significant anemia. this morning woke up acutely dizzy and lethargic. EMS noted her to by hypotensive on arrival. Has received IVF with improvement of sx's. Over the past few months had been having burning right chest and right scapular discomfort that would intermittently radiate down her right leg (one time associated with a few seconds of left sided numbness). Recent ER evaluation x 2 for more severe episodes of burning chest and back discomfort (particularly component of back pain). Sx's worsened by movement and reproducible to palpation. Non-exertional. Has taken 4 or 5 doses of advil over the past month. Denies bleeding. Had similar episode 3 years ago when she was also diagnosed with anemia. Does not recall details of etiology of her prior anemia. Denies sob, orthopnea, pnd, le edema, bleeding, palps. + nausea. No recent vomiting diarrhea. Denies recent f/c/s, headache, cough , congestion, rashes. No swelling or warmth of joints. No prior episodes of syncope/presyncope. The patient denies fever, cough, diaphoresis, abdominal pain, vomiting, and diarrhea. PMHx/Past Surgical History: per hpi Social History: Never smoked. No alcohol, no drug use reported. fam hx: no h/o premature cad. ros: per hpi Ambulatory Orders Amoxicillin - [Amoxicillin 250mg Capsule -] 1,000 mg PO BID 10/24/16 Clarithromycin [Biaxin -] 500 mg PO BID 10/24/16 Omeprazole 20 mg PO BID 10/24/16 Ferrous Sulfate 325 mg PO BID #60 tablet 10/25/16 Current Medications Acetaminophen (Tylenol -) 650 mg PO Q4H PRN PRN Reason: FEVER OR PAIN Last Admin: 10/25/16 00:07 Dose: 650 mg Amoxicillin (Amoxicillin -) 250 mg PO BID [facility] Last Admin: 10/25/16 09:59 Dose: 250 mg Clarithromycin (Biaxin -) 500 mg PO BID [facility] Last Admin: 10/25/16 09:59 Dose: 500 mg Ferrous Sulfate (Feosol) 300 mg PO BID [facility] Last Admin: 10/25/16 12:51 Dose: 300 mg Sodium Chloride (Normal Saline -) 1,000 mls @ 150 mls/hr IV ASDIR [facility] Last Admin: 10/25/16 09:59 Dose: 150 mls/hr Ondansetron HCl (Zofran Odt -) 8 mg SL Q6H PRN PRN Reason: NAUSEA AND/OR VOMITING Pantoprazole Sodium (Protonix -) 20 mg PO BID [facility] Last Admin: 10/25/16 09:59 Dose: 20 mg Vital Signs - 24 hr 10/24/16 10/24/16 10/25/16 21:00 23:00 01:00 Temperature 99.2 F 97.9 F Pulse Rate 81 63 Respiratory 12 12 Rate Blood Pressure 113/51 133/70 105/54 O2 Sat by Pulse 100 Oximetry (%) 10/25/16 10/25/16 10/25/16 03:00 05:00 09:00 Temperature 98.0 F Pulse Rate 75 Respiratory 18 Rate Blood Pressure 133/74 106/54 122/65 O2 Sat by Pulse Oximetry (%) 10/25/16 10/25/16 10/25/16 10:00 10:05 12:00 Temperature Pulse Rate 71 72 Respiratory 18 Rate Blood Pressure 131/72 133/70 O2 Sat by Pulse 97 Oximetry (%) 10/25/16 10/25/16 14:00 18:00 Temperature 98.1 F 98.4 F Pulse Rate 72 75 Respiratory 18 18 Rate Blood Pressure 137/74 118/62 O2 Sat by Pulse Oximetry (%) Intake & Output 10/23/16 10/24/16 10/25/16 10/26/16 07:59 07:59 07:59 07:59 Intake Total 2350 1750 Balance 2350 1750 Weight 155 lb 155 lb 0.006 oz NAD, calm jvd flat, neck supple ctab, nl effort rrr nl s1, s2 2/6 systolic ejection murmur at usb ttp of right chest and sternum + bs soft nt nd ext without e/c/c + dp/pt aaox3 no jaundice, diaphoresis no carotid bruits. CBC, BMP 10/25/16 06:45 10/25/16 06:45 Laboratory Tests 09/30/16 10/24/16 10/24/16 20:40 07:56 08:21 Hgb 10.0 L INR Lactic Acid Magnesium Ferritin Total Bilirubin AST ALT Alkaline Phosphatase Creatine Kinase 123 Troponin I < 0.02 Albumin Lipase 152 Serum , Qual Negative Stool Occult Blood 10/24/16 10/24/16 10/24/16 08:23 08:55 09:00 Hgb INR Lactic Acid 1.3 Magnesium Ferritin Total Bilirubin 0.3 D AST 17 ALT 17 D Alkaline Phosphatase 56 D Creatine Kinase Troponin I Albumin Lipase Serum , Qual Stool Occult Blood Negative 10/24/16 10/25/16 10/25/16 22:55 06:45 06:45 Hgb INR 1.12 Lactic Acid Magnesium 2.1 Ferritin Total Bilirubin 0.3 AST 13 L D ALT 15 Alkaline Phosphatase 51 Creatine Kinase 93 Troponin I < 0.02 Albumin 2.6 L Lipase Serum , Qual Stool Occult Blood 10/25/16 10/25/16 06:45 10:25 Hgb INR Lactic Acid Magnesium Ferritin 3.316 L Total Bilirubin AST ALT Alkaline Phosphatase Creatine Kinase Troponin I < 0.02 Albumin Lipase Serum , Qual Stool Occult Blood EKG wnl tele SR chest CTA. No ao dissection, PE. Abd/pelvic CT: wnl echo: nl lv/rv 1+ mr/tr rvsp 30-40 46 yo with h/o anemia and recent diagnosis of h. pylori as well as recent episodes of chest pain presents to ER with dizziness/hypotension and found to have significant anemia. CP: - atypical cp, reproducible to palpation. non-exertional. enz neg x 3. EKG wnl. No family hx of premature CAD. No concern for ACS at this time. Can consider outpatient ischemic evaluation once anemia is corrected. dizziness/presyncope/hypotension - likely related to anemia. No active bleed identified at this time. Hypotension may be related to poor po intake in setting of nausea. Improved with IVF. - would check orthostatics - tsh - echo wnl - brain mri pending, would check carotid u/s (? arm claudication) - mgm't of anemia per pmd/gi.
[2016-10-25] MEDS ORDERED: PT OWN MED DRAWER 7, Y5N ONE (22:39)
[2016-10-26 06:21] VITALS: TEMP 98
[2016-10-26 07:44] LABS: MCH 24.1 pg (25.7-33.7); MEAN CELL VOLUME 75.4 fl (80-96); MEAN PLT VOLUME 10.2 fl (7.5-11.1); PLATELET COUNT 182 K/MM3 (134-434); RDW 17.8 % (11.6-15.6); WHITE BLOOD COUNT 6.1 K/mm3 (4.0-10.0)
[2016-10-26] MEDS ORDERED: PT OWN MED DRAWER 7, Y5N ONE ×2 (07:52→08:42)
[2016-10-26 08:04] LABS: CALCIUM 7.8 mg/dL (8.5-10.1)
[2016-10-26 08:07] LABS: SERUM IRON 16 ug/dL (27-159); TOTAL IRON BINDING CAPACITY 308 ug/dL (250-450); TRANSFERRIN 271 mg/dL (200-370); UIBC 292 ug/dL (131-425)
--- NOTE | 2016-10-26 08:12 | PN ---
Progress Note, Physician Chief Complaint: presyncope History of Present Illness: dizzy much better--mild when standing. no syncope R pectoral localized cp improving--worse with palpation no sob, palpit - Current Medication List Current Medications: Active Medications Acetaminophen (Tylenol -) 650 mg PO Q4H PRN PRN Reason: FEVER OR PAIN Last Admin: 10/25/16 00:07 Dose: 650 mg Amoxicillin (Amoxicillin -) 250 mg PO BID [facility] Last Admin: 10/25/16 23:01 Dose: 250 mg Clarithromycin (Biaxin -) 500 mg PO BID [facility] Last Admin: 10/25/16 23:01 Dose: 500 mg Ferrous Sulfate (Feosol) 300 mg PO BID [facility] Last Admin: 10/25/16 23:01 Dose: 300 mg Sodium Chloride (Normal Saline -) 1,000 mls @ 150 mls/hr IV ASDIR [facility] Last Admin: 10/25/16 23:02 Dose: 150 mls/hr Ondansetron HCl (Zofran Odt -) 8 mg SL Q6H PRN PRN Reason: NAUSEA AND/OR VOMITING Pantoprazole Sodium (Protonix -) 20 mg PO BID [facility] Last Admin: 10/25/16 23:01 Dose: 20 mg - Objective Vital Signs: Vital Signs Temperature 98 F 10/26/16 06:00 Pulse Rate 64 10/26/16 06:00 Respiratory Rate 20 10/26/16 06:00 Blood Pressure 118/52 10/26/16 06:00 O2 Sat by Pulse Oximetry (%) 99 10/25/16 21:00 Constitutional: Yes: Well Nourished, No Distress, Calm Cardiovascular: Yes: Regular Rate and Rhythm, S1, S2. No: Gallop, Murmur Respiratory: Yes: Regular, CTA Bilaterally. No: Accessory Muscle Use, Rales, Wheezes Extremities: No: Cold Edema: No Neurological: Yes: Alert, Oriented Psychiatric: No: Agitated Labs: CBC, BMP 10/26/16 05:42 INR, PTT INR 1.12 (0.82-1.09) 10/25/16 06:45 - ....Imaging EKG: Other (tele: NSR) Assessment/Plan EKG: wnl echo: nl lv/rv 1+ mr/tr rvsp 30-40 chest CTA: No ao dissection, PE. Abd/pelvic CT: wnl 46 yo with h/o anemia and recent diagnosis of h. pylori as well as recent episodes of chest pain presents to ER with dizziness/hypotension and found to have significant anemia. CP: - atypical cp, reproducible to palpation. non-exertional. enz neg x 3. EKG wnl. No family hx of premature CAD. No concern for ACS at this time. -pain improving - no need for further evaluation unless develops sx's more compatible with ischemia dizziness/presyncope/hypotension - likely related to anemia. No active bleed identified at this time. Hypotension may be related to poor po intake in setting of nausea. - SBP 80s initially--now normotensive s/p IVF. - sx's resolving with hydration - check orthostatics - tsh pending - brain mri done--report pending - f/u carotid u/s (? arm claudication) - mgm't of anemia per pmd/gi. D/C TELEMETRY
[2016-10-26 08:17] LABS: COCKROFT - GAULT 157.7005; CREATININE 0.5 mg/dL (0.55-1.02); THYROID STIMULATING HORMONE 1.53 uIU/ml (0.358-3.74)
[2016-10-26] MEDS: PANTOPRAZOLE 20 MG TABLET (FP) PO SCH (09:08)
[2016-10-26] MEDS: AMOXICILLIN 250 MG CAPSULE PO SCH (09:08)
[2016-10-26] MEDS: FERROUS SO4 300 MG/5 ML ORAL SOLN UNIT DOSE CUPS PO SCH (09:08)
[2016-10-26] MEDS: CLARITHROMYCIN 500 MG TABLET (UD) PO SCH (09:09)
[2016-10-26] MEDS: SODIUM CHLORIDE 1,000 ML IV SCH (09:09)
[2016-10-26 10:15] VITALS: PULSE 70
--- NOTE | 2016-10-26 10:36 | PN ---
Physical Exam: SUBJECTIVE: Patient seen and examined. Patient feels better. She has mild lightheadedness. No chest pain. She wants to go home. OBJECTIVE: Vital Signs Period Temp Pulse Resp BP Sys/Oneal Pulse Ox Last 24 Hr 97.7 F-98.4 F 62-75 18-20 108-138/52-74 99 GENERAL: The patient is awake, alert, and fully oriented, in no acute distress. LUNGS: Breath sounds equal, clear to auscultation bilaterally, no wheezes, no crackles, no accessory muscle use. HEART: Regular rate and rhythm, S1, S2 without murmur, rub or gallop. ABDOMEN: Soft, nontender, nondistended, normoactive bowel sounds, no guarding, no rebound, no hepatosplenomegaly, no masses. EXTREMITIES: 2+ pulses, warm, well-perfused, no edema. Laboratory Results - last 24 hr 10/25/16 10/25/16 10/26/16 06:45 10:25 05:42 WBC 6.1 RBC 3.45 L Hgb 8.3 L Hct 26.0 L MCV 75.4 L MCHC 32.0 RDW 17.8 H Plt Count 182 MPV 10.2 Sodium Potassium Chloride Carbon Dioxide Anion Gap BUN Creatinine Random Glucose Calcium Iron 16 L TIBC 308 Iron Saturation 5 L Transferrin 271 Troponin I < 0.02 TSH 10/26/16 05:42 WBC RBC Hgb Hct MCV MCHC RDW Plt Count MPV Sodium 140 Potassium 3.7 Chloride 107 Carbon Dioxide 24 Anion Gap 9 BUN 9 Creatinine 0.5 L D Random Glucose 91 Calcium 7.8 L Iron TIBC Iron Saturation Transferrin Troponin I TSH 1.53 Active Medications Generic Name Dose Route Start Last Admin Trade Name Freq PRN Reason Stop Dose Admin Acetaminophen 650 mg 10/24/16 11:33 10/25/16 00:07 Tylenol - PO 650 mg Q4H PRN Administration FEVER OR PAIN Amoxicillin 250 mg 10/24/16 11:45 10/26/16 09:08 Amoxicillin - PO 250 mg BID TUNG Administration Clarithromycin 500 mg 10/24/16 12:30 10/26/16 09:09 Biaxin - PO 500 mg BID TUNG Administration Ferrous Sulfate 300 mg 10/25/16 12:00 10/26/16 09:08 Feosol PO 300 mg BID TUNG Administration Sodium Chloride 1,000 mls @ 150 mls/hr 10/24/16 20:45 10/26/16 09:09 Normal Saline - IV 150 mls/hr ASDIR TUNG Administration Iron Sucrose 200 mg/ Sodium 250 mls @ 250 mls/hr 10/26/16 10:27 Chloride IVPB 10/26/16 11:26 ONCE ONE Ondansetron HCl 8 mg 10/24/16 16:57 Zofran Odt - SL Q6H PRN NAUSEA AND/OR VOMITING Pantoprazole Sodium 20 mg 10/24/16 13:00 10/26/16 09:08 Protonix - PO 20 mg BID TUNG Administration ASSESSMENT/PLAN: This is a 46 year old woman with no significant history who presented to the ER complaining of dizziness and abdominal pain. 1. Hypotension - Improved 2. Chest pain - Possibly secondary to GERD - Echocardiogram shows normal LV, normal RV, mild MR, mild TR, RVSP 30-40 mmHg - CTA of chest shows no evidence of PE, aortic aneurysm, aortic dissection - Continue Protonix - Cardiology consult appreciated 3. Anemia, iron-deficiency - Hemoglobin stable - Continue ferrous sulfate - Venofer 200 mg IV x 1 today 4. GERD with H. pylori - Continue Amoxicillin, Biaxin, Protonix 5. Discharge home if MRI of brain unremarkable Visit type - Emergency Visit Emergency Visit: Yes ED Registration Date: 10/24/16 Care time: The patient presented to the Emergency Department on the above date and was hospitalized for further evaluation of their emergent condition. - New Patient This patient is new to me today: No - Critical Care Critical Care patient: No - Discharge Referral Referred to [facility] Med P.C.: No
[2016-10-26] MEDS ORDERED: SENNOSIDES/DOCUSATE COMBO (SENNA PLUS) TABLET (UD) PO SCH (10:45)
[2016-10-26] MEDS ORDERED: IRON SUCROSE INJECTION 200 MG in SODIUM CHLORIDE 100 ML IVPB ONE (11:30)
[2016-10-26 12:29] VITALS: BP 130/58
--- NOTE | 2016-10-26 15:35 | EKG ---
Test Reason : Blood Pressure : / mmHG Vent. Rate : 066 BPM Atrial Rate : 066 BPM P-R Int : 154 ms QRS Dur : 074 ms QT Int : 420 ms P-R-T Axes : 063 021 058 degrees QTc Int : 440 ms NORMAL SINUS RHYTHM NORMAL ECG WHEN COMPARED WITH ECG OF 24-OCT-2016 07:46, NO SIGNIFICANT CHANGE WAS FOUND Confirmed by JEISON FLORES MD ([id number]) on 10/26/2016 3:35:23 PM Referred By: LAUREN VANG Confirmed By:JEISON FLORES MD
--- NOTE | 2016-10-26 15:40 | EKG ---
Test Reason : Blood Pressure : / mmHG Vent. Rate : 059 BPM Atrial Rate : 059 BPM P-R Int : 164 ms QRS Dur : 076 ms QT Int : 472 ms P-R-T Axes : 064 013 041 degrees QTc Int : 467 ms SINUS BRADYCARDIA LOW VOLTAGE QRS BORDERLINE ECG WHEN COMPARED WITH ECG OF 30-SEP-2016 18:35, NO SIGNIFICANT CHANGE WAS FOUND Confirmed by JEISON FLORES MD ([id number]) on 10/26/2016 3:40:07 PM Referred By: Confirmed By:JEISON FLORES MD
--- NOTE | 2016-10-27 15:39 | EKG ---
Test Reason : Blood Pressure : / mmHG Vent. Rate : 072 BPM Atrial Rate : 072 BPM P-R Int : 150 ms QRS Dur : 074 ms QT Int : 414 ms P-R-T Axes : 064 020 063 degrees QTc Int : 453 ms NORMAL SINUS RHYTHM NORMAL ECG WHEN COMPARED WITH ECG OF 24-OCT-2016 07:46, NO SIGNIFICANT CHANGE WAS FOUND Confirmed by JEISON FLORES MD ([id number]) on 10/27/2016 3:39:23 PM Referred By: Confirmed By:JEISON FLORES MD
--- NOTE | 2016-10-27 19:57 | DS ---
Physical Exam: HOSPITAL COURSE: Date of Admission:10/24/16 46 yo F with newly diagnosed GERD and h. pylori on triple therapy admitted to the hospital for hypotension. In the ED she responded to fluids and hypotension resolved upon admission. However, she has multiple complaints including chest pain, dizziness, headache, etc. Her orthostatic BP was normal, MRI does not show any acute pathology, CT chest and abd ruled out PE and dissection, cardiac work up was also negative. However, she's foun to have iron deficiency anemia which could be responsible for his fatigue and dizziness. She's started on iron supplement and instructed to follow up with her PMD within a week. Date of Discharge: 10/27/16 Minutes to complete discharge: 30 Discharge Summary Reason For Visit: LETHARGY Condition: Stable - Instructions Diet, Activity, Other Instructions: Instruction for continuing care: You were admitted to hospital because you felt dizzy, weak and have low blood pressure. After extensive workup, all the imaging and lab works are normal except that you have chronic iron deficiency anemia, which could be responsible for your dizziness and weakness. You are advised to continue to take the iron pills twice a day which has been sent to your pharmacy. Make an appointment with Dr. Mendez (GI doctor) to have an outpatient workup on malabsorption and endoscopy. Follow up with your primary doctor within a week. Referrals: Sammy Fragoso MD [Staff Physician] - Vanita Jimenez MD [Primary Care Provider] - Disposition: HOME - Home Medications Comprehensive Discharge Medication List: Ambulatory Orders Amoxicillin - [Amoxicillin 250mg Capsule -] 1,000 mg PO BID 10/24/16 Clarithromycin [Biaxin -] 500 mg PO BID 10/24/16 Omeprazole 20 mg PO BID 10/24/16 Ferrous Sulfate 325 mg PO BID #60 tablet 10/25/16 Sennosides/Docusate Sodium [Pericolace -] 1 tablet PO BID #60 tablet 10/26/16 This patient is new to me today: No Emergency Visit: No Critical Care patient: No - Discharge Referral Referred to [facility] Med P.C.: No
== END 2016-10-26 15:18 | disposition home or self-care (01) | DRG 663 ==
LOC: JER 07:37 → JERBED 10:33 → J5S 12:47 → J4W 10-25 15:13
PROVIDERS: ADMIT Internal Medicine; ATTEND Internal Medicine
DX: D50.8 Other iron deficiency anemias (principal); I95.9 Hypotension, unspecified; B96.81 Helicobacter pylori [H. pylori] as the cause of diseases classified elsewhere; K21.9 Gastro-esophageal reflux disease without esophagitis; G43.809 Other migraine, not intractable, without status migrainosus; R42 Dizziness and giddiness; K29.60 Other gastritis without bleeding; R07.89 Other chest pain; E86.0 Dehydration
CPT/HCPCS: 36415; 70552-TC; 71010-TC; 71275-TC; 74177-TC; 80048; 80053; 81003; 81015; 82272; 82550; 82728; 83540; 83550; 83605; 83690; 83735; 84100; 84443; 84466; 84484; 84703; 85025; 85027; 85610; 85730; 86850; 86900; 86901; 93005; 93010; 93306-TC; 99284-25; J1756; Q9967

== ENCOUNTER 2016-10-27 23:21 | Emergency (ER) | payer OTHER ==
[2016-10-28 01:10] VITALS: BMI 28.3
[2016-10-28] MEDS ORDERED: SODIUM CHLORIDE 1,000 ML IV STA (02:13)
[2016-10-28 02:48] LABS: URINE APPEARANCE CLEAR; URINE BILIRUBIN NEGATIVE (NEGATIVE); URINE COLOR STRAW; URINE GLUCOSE (UA) NEGATIVE (NEGATIVE); URINE KETONE NEGATIVE (NEGATIVE); URINE LEUK ESTERASE NEGATIVE (NEGATIVE); URINE NITRITE NEGATIVE (NEGATIVE); URINE PROTEIN NEGATIVE (NEGATIVE); URINE UROBILINOGEN NEGATIVE E.U./dl (0.2-1.0)
[2016-10-28 02:50] LABS: MCH 23.7 pg (25.7-33.7); MCHC 31.4 g/dl (32.0-36.0); MEAN CELL VOLUME 75.5 fl (80-96); PLATELET COUNT 238 K/MM3 (134-434); RDW 17.8 % (11.6-15.6); WHITE BLOOD COUNT 7.3 K/mm3 (4.0-10.0)
[2016-10-28 03:19] LABS: ALBUMIN 3.5 g/dl (3.4-5.0); ANION GAP 9 (8-16); BILIRUBIN,TOTAL 0.2 mg/dL (0.2-1.0); CALCIUM 8.9 mg/dL (8.5-10.1); CO2 24 mmol/L (21-32); CREATININE 0.6 mg/dL (0.55-1.02); GLUCOSE,RANDOM 96 mg/dL (74-106); SGPT/ALT 39 U/L (12-78); TOT PROT 7.3 g/dl (6.4-8.2)
[2016-10-28 03:22] LABS: ALK PHOS 80 U/L (45-117); TROPONIN I < 0.02 ng/ml (0.00-0.05)
[2016-10-28 03:24] LABS: SGOT/AST 42 U/L (15-37)
[2016-10-28 03:43] LABS: URINE BLOOD 1+ (NEGATIVE)
[2016-10-28 03:45] LABS: URINE RBC <1 /hpf (0-3); URINE WBC 1 /hpf (3-5)
--- NOTE | 2016-10-28 04:26 | PDOC ---
History of Present Illness - General Chief Complaint: Pain Stated Complaint: PAIN/DIZZINESS Time Seen by Provider: 10/28/16 01:05 History Source: Patient Exam Limitations: No Limitations - History of Present Illness Initial Comments: 10/28/16 04:21 46yo Female patient recently discharged from this hospital for heart palpitation r/o CVA presents to ED c/o right thigh pain, right arm pain and right head pain that began yesterday but has progressively gotten worse. Patient denies dizziness, blurred vision, double vision, epistaxis, CP, Abdominal pain, n/v/d, weakness, fever, or any other complaints at this time. Severity: mild Modifying Factors: worse with: cold therapy, eating, immobilization, medication , movement, rest, other Associated Symptoms: denies: denies symptoms, chest pain, cough, diaphoresis, fever/chills, headaches, loss of appetite, malaise, nausea/vomiting, rash, seizure, shortness of breath, syncope, weakness, other Aspirin Received prior to arrival: No: no aspirin today, unknown, 81 mg x 1, 81 mg x 2, 81 mg x 3, 81 mg x 4, 325 mg x 1, provided at home, provided by EMS, provided by ED Past History - Travel Traveled outside of the country in the last 30 days: No Close contact w/someone who was outside of country & ill: No - Past Medical History Allergies/Adverse Reactions: Allergies Allergy/AdvReac Type Severity Reaction Status Date / Time No Known Allergies Allergy Verified 10/24/16 08:02 Home Medications: Ambulatory Orders Amoxicillin - [Amoxicillin 250mg Capsule -] 1,000 mg PO BID 10/24/16 Clarithromycin [Biaxin -] 500 mg PO BID 10/24/16 Omeprazole 20 mg PO BID 10/24/16 Ferrous Sulfate 325 mg PO BID #60 tablet 10/25/16 Sennosides/Docusate Sodium [Pericolace -] 1 tablet PO BID #60 tablet 10/26/16 Methocarbamol [Robaxin -] 750 mg PO Q8H PRN #21 tablet 10/28/16 Thyroid Disease: No - Psycho/Social/Smoking Cessation Hx Anxiety: No Suicidal Ideation: No Smoking History: Never smoked Have you smoked in the past 12 months: No Hx Alcohol Use: No Drug/Substance Use Hx: No Substance Use Type: None Hx Substance Use Treatment: No Review of Systems - Review of Systems Able to Perform ROS?: Yes Is the patient limited Scottish proficient: No Constitutional: No: Chills, Fever Respiratory: No: Cough, Shortness of Breath, Stridor, Wheezing Cardiac (ROS): No: Chest Pain, Lightheadedness, Palpitations, Syncope, Chest Tightness ABD/GI: No: Constipated, Diarrhea, Nausea, Poor Appetite, Poor Fluid Intake, Vomiting : No: Dysuria, Flank Pain, Hematuria Musculoskeletal: Yes: Other (Right Thigh Pain/ Right Arm pain/ Right Scalp pain) . No: Back Pain Integumentary: No: Bruising, Erythema, Rash, Sweating Neurological: Yes: Headache. No: Seizure, Unsteady Gait, Ataxia, Dizziness All Other Systems: Reviewed and Negative *Physical Exam - Vital Signs Last Vital Signs Temp Pulse Resp BP Pulse Ox 97.8 F 75 17 132/78 100 10/28/16 01:08 10/28/16 01:08 10/28/16 01:08 10/28/16 01:08 10/28/16 01:08 - Physical Exam General Appearance: Yes: Nourished, Appropriately Dressed. No: Apparent Distress, Mild Distress, Moderate Distress, Severe Distress HEENT: positive: EOMI, RUSSEL, Normal ENT Inspection, Normal Voice, Symmetrical, TMs Normal, Pharynx Normal. negative: Tonsillar Exudate, Tonsillar Erythema, Nasal Congestion, Rhinorrhea, TM Bulging, TM Dull, TM Erythema Neck: positive: Trachea midline, Normal Thyroid, Supple. negative: Rigid, Lymphadenopathy (R), Lymphadenopathy (L), Tender midline Respiratory/Chest: positive: Lungs Clear, Normal Breath Sounds. negative: Chest Tender, Respiratory Distress, Accessory Muscle Use, Labored Respiration, Rapid RR, Stridor, Wheezing Cardiovascular: positive: Regular Rhythm, Regular Rate Gastrointestinal/Abdominal: positive: Normal Bowel Sounds, Soft. negative: Distended, Guarding, Rebound, Tenderness Musculoskeletal: positive: Normal Inspection. negative: CVA Tenderness, Decreased Range of Motion, Vertebral Tenderness Extremity: positive: Normal Capillary Refill, Normal Inspection, Normal Range of Motion, Pelvis Stable. negative: Tender, Delayed Capillary Refill, Pedal Edema, Swelling, Calf Tenderness, Erythema, Inflammation Integumentary: positive: Normal Color, Dry, Warm. negative: Erythema, Rash, Swelling Neurologic: positive: medical care manager II-XII NML intact, Fully Oriented, Alert, Normal Mood/ Affect, Normal Response, Motor Strength 09/20 ED Treatment Course - LABORATORY CBC & Chemistry Diagram: 10/28/16 02:39 10/28/16 02:39 - ADDITIONAL ORDERS Additional order review: Laboratory Results 10/28/16 10/28/16 02:39 02:32 Sodium 139 Potassium 4.7 D Chloride 106 Carbon Dioxide 24 Anion Gap 9 BUN 11 D Creatinine 0.6 Creat Clearance w eGFR > 60 Random Glucose 96 Calcium 8.9 Total Bilirubin 0.2 D AST 42 H D ALT 39 D Alkaline Phosphatase 80 D Creatine Kinase 92 Troponin I < 0.02 Total Protein 7.3 D Albumin 3.5 D Urine Color Straw Urine Appearance Clear Urine pH 6.0 Urine Protein Negative Urine Glucose (UA) Negative Urine Ketones Negative Urine Blood 1+ H Urine Nitrite Negative Urine Bilirubin Negative Urine Urobilinogen Negative Ur Leukocyte Esterase Negative Urine RBC <1 Urine WBC 1 Ur Epithelial Cells Rare 10/28/16 02:39 RBC 4.04 MCV 75.5 L MCHC 31.4 L RDW 17.8 H MPV 10.0 - RADIOLOGY Radiology Studies Ordered: Category Date Time Status HEAD CT WITHOUT CONTRAST [CT] Stat CT Scan 10/28/16 02:13 Taken CHEST PA & LAT [RAD] Stat Radiology 10/28/16 02:13 Taken - Medications Given in the ED: ED Medications Discontinued Medications Generic Name Dose Route Start Last Admin Trade Name Freq PRN Reason Stop Dose Admin Sodium Chloride 1,000 mls @ 1,000 mls/hr 10/28/16 02:13 10/28/16 02:53 Normal Saline - IV 10/28/16 03:12 1,000 mls/hr ASDIR STA Administration *DC/Admit/Observation/Transfer Diagnosis at time of Disposition: Head and face pain, Musculoskeletal pain - Discharge Dispostion Disposition: HOME Condition at time of disposition: Stable Admit: No - Prescriptions Prescriptions: Methocarbamol [Robaxin -] 750 mg PO Q8H PRN #21 tablet PRN Reason: Musculoskeletal Pain - Patient Instructions Printed Discharge Instructions: DI for Musculoskeletal Pain Additional Instructions: SEGUIMIENTO CON EL DR. JOHNSON (NEUROLOGA) ESTA SEMANA. LLAMAR PARA CALIFICAR LA NEIL. AMANDEEP MEDICAMENTOS CHELSEA SE PRESCRIBE. MOTRIN O TYLENOL PARA EL DOLOR CHELSEA SEA NECESARIO. SIGA CON ROSAS PROVEEDOR DE CUIDADO PRIMARIO TAMBIN. FOLLOW UP WITH DR. JOHNSON (NEUROLOGY) THIS WEEK. CALL TO SCHEDULE APPOINTMENT. TAKE MEDICATIONS PRESCRIBED. MOTRIN OR TYLENOL FOR PAIN NEEDED. FOLLOW UP WITH YOUR PRIMARY CARE PROVIDER WELL. Print Language: MAURITANIAN
[2016-10-28 04:45] VITALS: BP 112/54; PULSE 66; TEMP 97.9
== END 2016-10-28 04:46 | disposition home or self-care (01) ==
LOC: JER 23:21
PROC: 3E0333Z Introduction of Anti-inflammatory into Peripheral Vein, Percutaneous Approach (ICD-10-PCS; principal; 2016-10-27)
DX: R51 Headache (principal); M79.1 Myalgia
CPT/HCPCS: 36415; 70450-TC; 71020-TC; 80053; 81003; 81015; 82550; 84484; 84703; 85027; 96360; 99282-25

== ENCOUNTER → 2016-10-28 | Emergency (ER) | payer OTHER ==
[2016-10-28 16:53] VITALS: BP 144/74; PULSE 71; TEMP 97.9; BMI 28.3
--- NOTE | 2016-10-28 16:56 | PDOC ---
Rapid Medical Evaluation Chief Complaint: Redness To Affected Area Time Seen by Provider: 10/28/16 16:50 Medical Evaluation: Allergies Allergy/AdvReac Type Severity Reaction Status Date / Time No Known Allergies Allergy Verified 10/28/16 16:49 10/28/16 16:52 46 year old female history of GERD and iron-deficiency anemia, recently discharged from this facility on Friday after receiving iron infusion via antecubital vein. That same day, began to develop redness and swelling at the site. Applied warm compresses, but worsened. Had subjective fevers last night. V/s here unremarkable. Large area of induration, tenderness, and erythema at left AC -Duplex u/s LUE to r/o DVT, abscess -Basic labs and blood cultures -To Main ED for further evaluation
[2016-10-28 17:21] LABS: BASOPHIL 0.7 % (0-2.0); MCH 23.9 pg (25.7-33.7); MCHC 31.3 g/dl (32.0-36.0); MEAN CELL VOLUME 76.2 fl (80-96); MEAN PLT VOLUME 9.3 fl (7.5-11.1); NEUTROPHILS 69.4 % (42.8-82.8); PLATELET COUNT 239 K/MM3 (134-434); RDW 17.8 % (11.6-15.6); WHITE BLOOD COUNT 7.6 K/mm3 (4.0-10.0)
[2016-10-28 17:35] LABS: INR 1.08 (0.82-1.09); PROTHROMBIN TIME (PATIENT) 11.9 SEC (9.98-11.88)
[2016-10-28 18:02] LABS: ALBUMIN 3.6 g/dl (3.4-5.0); ANION GAP 9 (8-16); CALCIUM 8.7 mg/dL (8.5-10.1); CO2 26 mmol/L (21-32); CREATININE 0.6 mg/dL (0.55-1.02); GLUCOSE,RANDOM 111 mg/dL (74-106); SGOT/AST 28 U/L (15-37); SGPT/ALT 38 U/L (12-78)
[2016-10-28 18:03] LABS: ALK PHOS 83 U/L (45-117); BILIRUBIN,TOTAL 0.4 mg/dL (0.2-1.0); TOT PROT 7.1 g/dl (6.4-8.2)
--- NOTE | 2016-10-28 20:53 | PDOC ---
History of Present Illness <Sarah Billingsley - Last Filed: 10/28/16 20:58> - General History Source: Patient Exam Limitations: No Limitations - History of Present Illness Initial Comments: 10/28/16 20:59 The patient is a 46 year old female with no significant past medical history, who presents to the ER with left antecubital erythema and pain for one day. Patient was here yesterday for right arm pain and right head pain. She had an IV put on the left antecubital fossa during her ER visit. Patient comes today with pain and redness to the area. Denies paresthesia, decreased ROM to the left arm Denies fever, chills, cough Denies lightheadedness <Prisca Coles - Last Filed: 10/28/16 21:05> - General Chief Complaint: Redness To Affected Area Stated Complaint: ABSCESS Time Seen by Provider: 10/28/16 16:50 Past History - Past Medical History Anemia: Yes GI Disorders: Yes (gerd) Thyroid Disease: No - Psycho/Social/Smoking Cessation Hx Anxiety: No Suicidal Ideation: No Smoking History: Never smoked Have you smoked in the past 12 months: No Information on smoking cessation initiated: No Hx Alcohol Use: No Drug/Substance Use Hx: No Substance Use Type: None Hx Substance Use Treatment: No <Sarah Billingsley - Last Filed: 10/28/16 20:58> <Prisca Coles - Last Filed: 10/28/16 21:05> - Past Medical History Allergies/Adverse Reactions: Allergies Allergy/AdvReac Type Severity Reaction Status Date / Time No Known Allergies Allergy Verified 10/28/16 16:49 Home Medications: Ambulatory Orders Amoxicillin - [Amoxicillin 250mg Capsule -] 1,000 mg PO BID 10/24/16 Clarithromycin [Biaxin -] 500 mg PO BID 10/24/16 Omeprazole 20 mg PO BID 10/24/16 Ferrous Sulfate 325 mg PO BID #60 tablet 10/25/16 Sennosides/Docusate Sodium [Pericolace -] 1 tablet PO BID #60 tablet 10/26/16 Methocarbamol [Robaxin -] 750 mg PO Q8H PRN #21 tablet 10/28/16 Review of Systems - Review of Systems Able to Perform ROS?: Yes Comments:: 10/28/16 20:59 CONSTITUTIONAL: Absent: fever, no chills, no fatigue EYES: Absent: visual changes ENT: Absent: ear pain, no sore throat CARDIOVASCULAR: Absent: chest pain, no palpitations RESPIRATORY: Absent: cough, no SOB GI: Absent: abdominal pain, no nausea, no vomiting, no constipation, no diarrhea GENITOURINARY: Absent: dysuria, no frequency, no hematuria MUSCULOSKELETAL: Present: left antecubital fossa pain and redness Absent: back pain, no arthralgia, no myalgia SKIN: Absent: rash NEURO: Absent: headache <HollimitchellPrisca - Last Filed: 10/28/16 21:05> *Physical Exam - Vital Signs Last Vital Signs Temp Pulse Resp BP Pulse Ox 97.9 F 71 18 144/74 100 10/28/16 16:50 10/28/16 16:50 10/28/16 16:50 10/28/16 16:50 10/28/16 16:50 <Sarah Billingsley - Last Filed: 10/28/16 20:58> - Vital Signs Last Vital Signs Temp Pulse Resp BP Pulse Ox 97.9 F 71 18 144/74 100 10/28/16 16:50 10/28/16 16:50 10/28/16 16:50 10/28/16 16:50 10/28/16 16:50 - Physical Exam Comments: 10/28/16 20:59 GENERAL: Well-appearing, well-nourished. No apparent distress. HEENT: Normocephalic, atraumatic. PERRL, EOM intact. CARDIOVASCULAR: Normal S1, S2. Regular rate and rhythm. PULMONARY: Clear to auscultation bilaterally. ABDOMEN: Soft, non-distended, non-tender. EXTREMITIES: Left antecubital fossa 10 cm in diameter with mild erythema and hematoma. Good pulses. Cap refill <2 seconds. Sensation totally intact. No streaking. Normal ROM in all four extremities. No gross deformities. SKIN: Warm, dry. No rash NEUROLOGICAL: No focal neurological deficits. <HollimitchellPrisca - Last Filed: 10/28/16 21:05> ED Treatment Course - LABORATORY CBC & Chemistry Diagram: 10/28/16 16:40 10/28/16 16:40 - ADDITIONAL ORDERS Additional order review: Laboratory Results 10/28/16 10/28/16 16:40 16:40 INR 1.08 Sodium 140 Potassium 4.5 Chloride 105 Carbon Dioxide 26 Anion Gap 9 BUN 8 D Creatinine 0.6 Creat Clearance w eGFR > 60 Random Glucose 111 H Calcium 8.7 Total Bilirubin 0.4 D AST 28 D ALT 38 Alkaline Phosphatase 83 Total Protein 7.1 Albumin 3.6 10/28/16 16:40 RBC 4.10 MCV 76.2 L MCHC 31.3 L RDW 17.8 H MPV 9.3 Neutrophils % 69.4 Lymphocytes % 20.3 D Monocytes % 7.6 Eosinophils % 2.0 Basophils % 0.7 <Sarah Billingsley - Last Filed: 10/28/16 20:58> - LABORATORY CBC & Chemistry Diagram: 10/28/16 16:40 10/28/16 16:40 - ADDITIONAL ORDERS Additional order review: Laboratory Results 10/28/16 10/28/16 16:40 16:40 INR 1.08 Sodium 140 Potassium 4.5 Chloride 105 Carbon Dioxide 26 Anion Gap 9 BUN 8 D Creatinine 0.6 Creat Clearance w eGFR > 60 Random Glucose 111 H Calcium 8.7 Total Bilirubin 0.4 D AST 28 D ALT 38 Alkaline Phosphatase 83 Total Protein 7.1 Albumin 3.6 10/28/16 16:40 RBC 4.10 MCV 76.2 L MCHC 31.3 L RDW 17.8 H MPV 9.3 Neutrophils % 69.4 Lymphocytes % 20.3 D Monocytes % 7.6 Eosinophils % 2.0 Basophils % 0.7 - RADIOLOGY Radiograph Interpretation: 10/28/16 21:04 US impression reported by Dr. Toby Castellanos: 1. No evidence of deep venous thrombosis 2. Superficial thrombosis of the cephalic vein <Prisca Coles - Last Filed: 10/28/16 21:05> *DC/Admit/Observation/Transfer <Sarah Billingsley - Last Filed: 10/28/16 20:58> - Attestations Scribe Attestion: 10/28/16 21:01 Documentation prepared by Prisca Coles, acting as medical staff manager for Sarah Billingsley MD. <Prisca Coles - Last Filed: 10/28/16 21:05> Diagnosis at time of Disposition: Superficial thrombophlebitis Qualifiers: Superficial thrombophlebitis-Involved body area: upper extremity Laterality: left Qualified Code(s): I80.8 - Phlebitis and thrombophlebitis of other sites - Discharge Dispostion Disposition: HOME Condition at time of disposition: Stable - Referrals Referrals: Vanita Jimenez MD [Primary Care Provider] - - Patient Instructions Printed Discharge Instructions: DI for Superficial Thrombophlebitis Additional Instructions: -Follow the instructions given in your Discharge handout -Use warm compresses to the area -Take Motrin or Aleve for Naprosyn for pain -If you develop worsening symptoms with extensive streaking or markedly increased swelling, return to emergency department
== END | disposition home or self-care (01) ==
LOC: JER 16:36
DX: I80.8 Phlebitis and thrombophlebitis of other sites (principal); K21.9 Gastro-esophageal reflux disease without esophagitis; D64.9 Anemia, unspecified
CPT/HCPCS: 36415; 80053; 84703; 85025; 85610; 87040; 93971; 99282-25